=== PATIENT | female | born 1970 | race Caucasian/White ===

== ENCOUNTER 2016-03-29 14:12 | Emergency (ER) | payer BC ==
[~2016-03-29] VITALS: Ht 165.1 cm; Wt 61.7 kg
[2016-03-29] MEDS ORDERED: PRAVASTATIN 20M20 MG PO (14:24)
[2016-03-29] MEDS ORDERED: LEVOTHYROXIN0.125 MG PO (14:24)
--- NOTE | 2016-03-29 15:01 | Emergency Room Report ---
History of Present Illness Time Seen by MD Hines Presenting Problem in Triage Pt arrived:Walked Presenting Problem:PT STATES SHE FELL INTO A CONCRETE WALL 3 DAYS AGO AND INJURIED HER LEFT FOREARM. BRUSING IS NOTED. 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 N Clinical Suspician of Infection? N Mental Status: 1 - Regular (Normal Baseline) Sepsis Risk:Possible Sepsis Risk Have you (or family members/close friends) recently traveled outside the [place]? N If Yes, where/when: Have you had exposure to infectious disease within the past month? TB? Other? Specify: ALLERGIES Coded Allergies: penicillin G (03/29/16) Home Medications Reported Medications Levothyroxine Sodium (Levothyroxine 0.125MG) 0.125 MG PO DAILY Pravastatin Sodium (Pravastatin 20MG) 20 MG PO DAILY History Medical History General Angina: No [place]: No Hypertension? No Hyperlipidemia? No CHF? No COPD? No Asthma? No Hernia? No Thyroid Problems? Yes CVA? No Seizures? No Diabetes? No UTI? No Stones? No GB Disease: No Hepatitis? No Cataracts? No Glaucoma? No TB? No Immunization Hx DT/Tetanus Unknown Surgical Hx Previous Surgery?Y Laproscopy X 3 Hysterectomy Left OOP Right OOP Left ureter reattached Left ureter attach to R NUT FORMER Hx LMP N/A Family History Family Hx Diabetes Yes CAD No Hypertension Yes Hyperlipidemia No Cancer Yes TB No Social History Smoking Hx Smoker: Never Smoker Tobacco: No Packs/day N/A Alcohol Alcohol: No Review of Systems All Other Systems Reviewed and Negative Musculoskeletal see HPI Psychiatric/Neurological denies no symptoms reported Physical Exam Vital Signs Vital Signs Date Time Temp Pulse Resp B/P Pulse O2 O2 Flow FiO2 Ox Delivery Rate 03/29 1417 97.9 91 20 149/86 98 General Appearance normal appearance, WD/WN, no apparent distress Respiratory Status No: respiratory distress. Cardiovascular no peripheral edema, normal peripheral pulses Extremities mild ecchymosis, midshaft ulnar region; no crepitus, deformities, or stepoffs noted; FROM all digits, wrist, elbow, shoulder; n/v intact with brisk CR, strong radial pulse, fully sensate over r/u/m/ax nerves, normal temperature hand. Neurologic alert, normal exam, no motor/sensory deficits, oriented x 3 Medical Decision Making LABS/Meds/Orders Pt receiving controlled substance in ED? No (declines pain meds) Results/Orders Orders Procedure Date/time Status FOREARM-LT 03/29 1426 Active XRAY/CT/US XRAY/CT/US XR interpretation by reviewed by me Xray Results normal/NAD, no fracture seen (good alignment) Departure Departure Time of Disposition 1507 Disposition DC Home or Self Care(routine) Clinical Impression Primary Impression: Contusion of left forearm, initial encounter Condition STABLE Referrals Pernell Zepeda MD (Family) Patient Instructions Contusion Additional Instructions Sling for comfort, Advil or Tylenol, see Dr. Zepeda for follow up in two to five days Discharge Counseling Counseled pt/family regarding diagnosis, test results, medications/RX, home care, follow up needs ED Critical Care Critical Care No at 1509
--- NOTE | 2016-03-29 15:01 | Emergency Room Report ---
History of Present Illness Time Seen by MD Hines Presenting Problem in Triage Pt arrived:Walked Presenting Problem:PT STATES SHE FELL INTO A CONCRETE WALL 3 DAYS AGO AND INJURIED HER LEFT FOREARM. BRUSING IS NOTED. 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 N Clinical Suspician of Infection? N Mental Status: 1 - Regular (Normal Baseline) Sepsis Risk:Possible Sepsis Risk Have you (or family members/close friends) recently traveled outside the [place]? N If Yes, where/when: Have you had exposure to infectious disease within the past month? TB? Other? Specify: ALLERGIES Coded Allergies: penicillin G (03/29/16) Home Medications Reported Medications Levothyroxine Sodium (Levothyroxine 0.125MG) 0.125 MG PO DAILY Pravastatin Sodium (Pravastatin 20MG) 20 MG PO DAILY History Medical History General Angina: No [place]: No Hypertension? No Hyperlipidemia? No CHF? No COPD? No Asthma? No Hernia? No Thyroid Problems? Yes CVA? No Seizures? No Diabetes? No UTI? No Stones? No GB Disease: No Hepatitis? No Cataracts? No Glaucoma? No TB? 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 Cardiovascular no peripheral edema, normal peripheral pulses Extremities mild ecchymosis, midshaft ulnar region; no crepitus, deformities, or stepoffs noted; FROM all digits, wrist, elbow, shoulder; n/v intact with brisk CR, strong radial pulse, fully sensate over r/u/m/ax nerves, normal temperature hand. Neurologic alert, normal exam, no motor/sensory deficits, oriented x 3 Medical Decision Making LABS/Meds/Orders Pt receiving controlled substance in ED? No (declines pain meds) Results/Orders Orders Procedure Date/time Status FOREARM-LT 03/29 1426 Active XRAY/CT/US XRAY/CT/US XR interpretation by reviewed by me Xray Results normal/NAD, no fracture seen (good alignment) Departure Departure Time of Disposition 1507 Disposition DC Home or Self Care(routine) Clinical Impression Primary Impression: Contusion of left forearm, initial encounter Condition STABLE Referrals Pernell Zepeda MD (Family) Patient Instructions Contusion Additional Instructions Sling for comfort, Advil or Tylenol, see Dr. Zepeda for follow up in two to five days Discharge Counseling Counseled pt/family regarding diagnosis, test results, medications/RX, home care, follow up needs ED Critical Care Critical Care No at 1504
[2016-03-29 15:16] VITALS: BP 149/86
--- NOTE | 2016-03-29 16:20 | RADIOLOGY REPORT PS360 ---
FOREARM-LT CLINICAL INDICATION: Pain following injury FALL ORDERING PHYSICIAN: Estrella Bell MD PATIENT AGE: 45 years COMPARISON: None FINDINGS: No fracture or dislocation. No bony or joint abnormality. IMPRESSION: Negative left forearm
[2016-05-17] MEDS ORDERED: ZITHROMAX Z PA250 MG PO (09:35)
== END 2016-03-29 15:16 | disposition home or self-care (01) ==
LOC: ER 14:12
DX: S50.12XA Contusion of left forearm, initial encounter (principal); W01.0XXA Fall on same level from slipping, tripping and stumbling without subsequent striking against object, initial encounter; Y92.009 Unspecified place in unspecified non-institutional (private) residence as the place of occurrence of the external cause

== ENCOUNTER 2016-10-07 09:37 | Emergency (ER) | payer BC ==
[~2016-10-07] VITALS: Ht 165.1 cm; Wt 61.2 kg
[~2016-10-07 09:37] MED LIST: LEVOTHYROXIN0.125 MG PO; PRAVASTATIN 20M20 MG PO; PYRIDIUM100 M2 PO; ZITHROMAX Z PA250 MG PO
--- OUTSIDE RECORDS SUMMARY | 2016-10-07 09:41 | External Medical Summary Rpt ---
Author Author , PHUONG Gasca EDITAANGEL Address Unknown Phone [email or web address] Purpose Continuity of Care Document - 08-26-2016 through 2016 Results Labs Lab Lab Date Result Refere Interp Status Commen Order Detail nces retati t Range on Urinalysis macro (dipstick) panel in Urine (08-26-2016 19:09) Appeara Clear CLEAR complet nce of 017 ed Urine 19:09 Bilirub NEGATIV NEG complet in 017 E ed [Presen 19:09 ce] in Urine by Test strip Erythro TRACE NEG Abnorma complet cytes 017 l ed [Presen 19:09 ce] in Urine Color YELLOW YELLOW complet of 017 ed Urine 19:09 Ketones NEGATIV NEG complet 017 E ed [Presen 19:09 ce] in Urine by Automat ed test strip Leukocy NEGATIV NEG complet te 017 E ed esteras 19:09 e [Presen ce] in Urine by Automat ed test strip Nitrite NEGATIV NEG complet 017 E ed [Presen 19:09 ce] in Urine by Test strip Urobili 0.2 NEG complet nogen 017 ed [Presen 19:09 ce] in Urine by Test strip
--- OUTSIDE RECORDS SUMMARY | 2016-10-07 09:41 | External Medical Summary Rpt ---
Demographics Preferred Language Romanian Marital Status Unknown Adventist Affiliation Unknown Race Unknown Ethnic Group Unknown Author Author PHUONG Address Unknown Phone Immunization No patient found.
--- OUTSIDE RECORDS SUMMARY | 2016-10-07 09:41 | External Medical Summary Rpt ---
Author Author PHUONG Singletary, [employer] Address Unknown Phone Unavailable Results Urinalysis macro (dipstick) panel in Urine Observa Value Referen Units Interpr Notes Date tion ce etation Range Appeara Clear CLEAR No No No Aug 26 nce of informa informa informa 2017 Urine tion in tion in tion in 7:09 PM source source source data data data Bilirub NEGATIV NEG No No No Aug 26 in E informa informa informa 2017 [Presen tion in tion in tion in 7:09 PM ce] in source source source Urine data data data by Test strip Erythro TRACE NEG No Abnorma No Aug 26 cytes informa l informa 2017 [Presen tion in tion in 7:09 PM ce] in source source Urine data data Color YELLOW YELLOW No No No Aug 26 of informa informa informa 2017 Urine tion in tion in tion in 7:09 PM source source source data data data Glucose NEG No No No Aug 26 [Mass/vol informati informati informati 2017 7:09 ume] in on in on in on in PM Urine by source source source Test data data data strip Ketones NEGATIV NEG mg/dL No No Aug 26 E informa informa 2017 [Presen tion in tion in 7:09 PM ce] in source source Urine data data by Automat ed test strip pH of 5.0 - 8.5 No Normal No Aug 26 Urine informati informati 2017 7:09 on in on in PM source source data data Protein NEG mg/dL No No Aug 26 [Mass/vol informati informati 2017 7:09 ume] in on in on in PM Urine by source source Automated data data test strip Specific 1.005 - No Normal No Aug 26 gravity 1.030 informati informati 2017 7:09 of Urine on in on in PM source source data data Leukocy NEGATIV NEG No No No Aug 26 te E informa informa informa 2017 esteras tion in tion in ti in 7:09 PM e source source source [Presen data data data ce] in Urine by Automat ed test strip Nitrite NEGATIV NEG No No No Aug 26 E informa informa informa 2016 [Presen tion in tion in tion in 7:09 PM ce] in source source source Urine data data data by Test strip Urobili 0.2 NEG E.U./dL No No Aug 26 nogen informa informa 2016 [Presen tion in tion in 7:09 PM ce] in source source Urine data data by Test strip
--- OUTSIDE RECORDS SUMMARY | 2016-10-07 09:41 | External Medical Summary Rpt ---
Author Author , PHUONG Gasca EDITAANGEL Address Unknown Phone [email or web address] Purpose Continuity of Care Document - 08-26-2016 [...]
--- OUTSIDE RECORDS SUMMARY | 2016-10-07 09:41 | External Medical Summary Rpt ---
Demographics Preferred Language Latvian Marital Status Unknown Buddhism Affiliation Unknown Race Unknown Ethnic Group Unknown Author Author PHUONG Address Unknown Phone Immunization No patient found.
--- NOTE | 2016-10-07 09:52 | Urgent Treatment Center Report ---
History of Present Issue Date/Time Seen by Provider 10/07/16 0951 Visit Reason Pt arrived:Walked Presenting Problem:PT STATES SWELLING AND REDNESS TO RIGHT SIDE OF FACE BESIDE R EYE THAT WAS PRESENT WHEN SHE WOKE UP THIS MORNING Location if Accident: Onset of symptoms date/time:10/07/16/ or onset unknown for:MEDICAL HX UNKNOWN Have you (or family members/close friends) recently traveled outside the [place]? N If Yes, where/when: Have you had exposure to infectious disease within the past month? TB? Other? Specify: c/o right side of face "slightly" red, "slightly" itching and "a little" swollen. "It just feels hot". Was in shower washing face when she noticed right side didn't feel as smooth as normal. Got out and noticed the redness/rash. Denies any new contacts including but not limited to soaps, detergents, perfumes , foods, medications. Worked in the yard and flower beds 3-4 days ago. No known exposure to poison forest but "can't be for sure". Adament that she has no pain. Really can't be sure itching either. "Just if I get hot it feels maybe a tiny bit tingly and a tiny bit itchy". Denies eye redness, itching, burning, vision change, watering. Adament no eye symptoms. "My eye is perfectly normal". Denies sore throat, throat swelling, difficulty breathing or swallowing. No one else at home w/ similiar symptoms. Unchanged since first noticed hours ago. Source patient Exam Limitations no limitations ALLERGIES Coded Allergies: penicillin G (03/29/16) Home Medications Reported Medications Levothyroxine Sodium (Levothyroxine 0.125MG) 0.125 MG PO DAILY Pravastatin Sodium (Pravastatin 20MG) 20 MG PO DAILY History Medical History General CAD? No Angina: No [place]: No Hypertension? No Hyperlipidemia? Yes CHF? No DVT? No PE? No COPD? No Asthma? No Anemia? No GERD? No Gastric ulcers? No GI Bleed? No Hernia? No Thyroid Problems? Yes Hypothyroidism? No CVA? No Seizures? No Diabetes? No Renal Insuffiency? No UTI? No Stones? No BPH? No GB Disease: No Nephritic Syndrome? No Asplenia? No Hepatitis? No Sickle Cell Disease? No Arthritis? No Migraines? No Cataracts? No Glaucoma? No MRSA? No HIV? No TB? No Anxiety? No Depression? No Cancer? No More? Yes Additional hx: CELIAC Immunization HX DT/Tetanus Unknown Surgical Hx Previous Surgery?Y Laproscopy X 3 Hysterectomy Left OOP Right OOP Left ureter reattached Left ureter attach to R Family History Family HX Diabetes Yes CAD No Hypertension Yes Hyperlipidemia No Cancer Yes TB No Social History Smoking Hx Smoker: Never Smoker Tobacco: No Packs/day N/A Alcohol Alcohol: No Review of Systems All Other Systems Reviewed and Negative Constitutional denies malaise, denies weakness Eyes see HPI, denies blurred vision, denies drainage, denies decreased acuity, denies foreign body sensation, denies inflammation, denies pain, denies photophobia, denies shadows, denies tunnel vision, denies vision change ENT see HPI. denies: ear pain, mouth pain, mouth swelling, tongue swelling. Respiratory see HPI Cardiovascular denies palpitations Gastrointestinal denies nausea Musculoskeletal denies joint pain, denies muscle pain Skin see HPI Psychiatric/Neurological denies headache, denies numbness, denies other (dizziness) Physical Exam Vital Signs Vital Signs Date Time Temp Pulse Resp B/P Pulse O2 O2 Flow FiO2 Ox Delivery Rate 10/07 1032 98.3 74 20 118/86 98 10/07 0945 98.3 74 20 118/86 98 General Appearance normal appearance, no apparent distress Eye Exam - bilateral eye normal exam Ear, Nose, Throat normal ENT inspection Neck non-tender, supple, full range of motion Respiratory Status No: respiratory distress. Cardiovascular no peripheral edema Neurologic alert, no motor/sensory deficits, oriented x 3 Mental status normal mood/affect Skin mild erythematous rash localized to right side forehead, cheek, chin; no vesicles, nontender Lymphatic no adenopathy Medical Decision Making LABS/Meds/Orders Pt receiving controlled substance in ED? No Consult MD Physician Consult Consult/PCP LORI Poon MD Time Called 1010 Reason Pt. Condition (shingles vs contact dermatitis) Comments Feels given symptoms and exam, most likely contact dermatitis. Recommends medrol dose pack with FU in 24 hours. Departure Departure Time of Disposition 1022 Disposition DC Home or Self Care(routine) Clinical Impression Primary Impression: Contact dermatitis Qualifiers: Contact dermatitis type: unspecified Contact dermatitis trigger: unspecified trigger Qualified Code: L25.9 - Unspecified contact dermatitis, unspecified cause Condition STABLE Referrals Duane MALONEY,Pernell (Family) Follow up immediately for new or worsening symptoms. You should notice improvement over the next 24-48 hours. If you doctor's office is closed on Monday, follow up here in the [facility] tomorrow for a 24 hours follow up. If worsening, might suspect shingles and need to start antiviral. NO REFERRAL Your eye pulmonary care nurse, Dr. Petersen. Report there immediately for ANY onset of eye discomfort. Let them know that we are treating a unilateral rash that initially was not painful but that shingles was a differential. Patient Instructions DI for Contact Dermatitis Additional Instructions * Poison Vine is a possibility given your yard work earlier this week. Discussed how poison vine spreads. Be sure to wash everything you think you might have been wearing when you were exposed. * Start steroid today. Helps with inflammation therefore, itching and rash. Follow directions on package. Rvwd side effects. Pt reports they have taken them before. * cool showers or compresses calms the itching. Oatmeal baths may help as well. * If you need additional medication to help with the itching, zyrtec in the morning and if necessary, benadryl at bedtime. Just remember benadryl causes drowsiness. * Cortisone cream may also help but be very diligent you not get into eye or mouth. Follow up immediately for new or worsening symptoms. Follow up tomorrow for 24 hour follow up. Discharge Counseling Counseled pt/family regarding diagnosis, medications/RX, home care, follow up needs Prescriptions Current Visit Scripts Methylprednisolone (Medrol Dose Ronald) 4 MG PO UD #1 RONALD TAKE DIRECTED ON PACKAGING Triamcinolone Acet 0.1% (Triamcinolone Acet 0.1% Cream 30GM) 1 ELIA TP TIDP PRN itching #30 GM use sparingly, avoid use in or near eyes or mouth. Wash hands after applying at 1328
[2016-10-07] MEDS ORDERED: MEDROL 4MG. DOSE4 MG PO (10:27)
[2016-10-07] MEDS ORDERED: TRIAMCINOL30 GM/TUBE TP (10:27)
[2016-10-07 10:32] VITALS: BP 118/86
== END 2016-10-07 10:32 | disposition home or self-care (01) ==
LOC: UTC 09:37
DX: L25.9 Unspecified contact dermatitis, unspecified cause (principal)